=== PATIENT | female | born 1980 | race Caucasian/White ===

== ENCOUNTER 2016-10-30 18:58 | Emergency (ER) | payer BC, OTHER ==
[2016-10-30] MEDS ORDERED: traMADol HCl 50 MG TAB ONE (19:32)
--- NOTE | 2016-10-30 21:38 | RAD ---
RIGHT THUMB THREE VIEWS 10/30/16 No fracture was appreciated at this time. The joints all appeared normal. On one view there was a qu estionable cortical angulation at the base of the distal phalanx, but the area appears so normal on the other two views that it is not currently definitive for fracture. IMPRESSION: Probably negative study. POS: HOME
== END 2016-10-30 19:38 | disposition home or self-care (01) ==
LOC: BURERS 18:58
DX: S60.221A Contusion of right hand, initial encounter (principal); W22.8XXA Striking against or struck by other objects, initial encounter
CPT/HCPCS: 29125